=== PATIENT | female | born 1940 | race Caucasian/White ===

== ENCOUNTER 2017-03-09 08:43 | Inpatient (IN) | payer OTHER ==
[~2017-03-09] VITALS: Ht 170.1 cm; Wt 92.2 kg
[2017-03-09] VITALS (11 sets, daily range): BP systolic 132–210; BP diastolic 66–83
[~2017-03-09 08:43] MED LIST: ALDACTONE25 M1 PO; AMILORIDE5 MG PO; APRESOLINE10 MG PO; ASA; ASPIRIN325 MG; ASPIRIN81 M1; ATARAX25 MG PO; ATIVAN PO; ATIVAN0.5 MG PO; CIPROFLOXACIN500 MG PO; COUMADIN; COUMADIN1 M1 PO; COUMADIN3 MG PO; Coumadin2 MG PO; DAYPRO600 M1 PO; DEMADEX5 MG PO; DILTIAZEM 24HR120 MG PO; EPLERENONE25 MG; FLAGYL500 M1 PO; FOLIC ACID1 MG; LEVAQUIN 500 M500 M1 PO; NIFEDIPINE30 MG PO; NORFLEX100 MG PO; PEPCID40 MG PO; PROCARDIA10 MG PO; PROTONIX40 MG; VASOTEC2.5 MG PO; VITAMIN D350000 UNIT PO; VITAMIN D50000 I1; VITAMIN D50000 I2 PO; Vicodin 5/500 505 MG; ZETIA10 MG PO
[2017-03-09 09:03] LABS: BASO % 0.7 % (0.0-1.0); EOS # 0.1 10*3/uL (0.0-0.4); HEMATOCRIT 43.9 % (37.0-47.0); HEMOGLOBIN 14.3 g/dl (12.0-16.0); LYMPH # 1.6 10*3/uL (1.3-4.4); LYMPH % 27.7 % (27.0-41.0); MEAN CELL VOLUME 99.8 fl (81.0-99.0); MEAN CORPUSCULAR HGB 32.5 pg (27.0-31.0); MEAN CORPUSCULAR HGB CONC 32.6 g/dl (33.0-37.0); MEAN PLATELET VOLUME 11.2 fl (9.6-12.3); MONO # 0.5 10*3/uL (0.1-1.0); MONO % 8.4 % (3.0-9.0); NEUT # 3.4 10*3/uL (2.3-7.9); PLATELET COUNT AUTOMATED 169 10*3/uL (130-400); RED CELL DISTRI WIDTH 13.4 % (0-14.5); WHITE BLOOD COUNT 5.6 10*3/uL (4.8-10.8)
[2017-03-09 09:30] LABS: ALBUMIN 3.4 gm/dl (3.1-4.5); ALKALINE PHOSPHATASE 81 U/L (45-117); BUN 15 mg/dl (7-24); CHLORIDE 108 mmol/L (98-107); CREATININE 1.08 mg/dL (0.55-1.02); MAGNESIUM 2.4 mg/dL (1.5-2.1); SGOT/AST 26 IU/L (3-35); SGPT/ALT 37 U/L (12-78); SODIUM 141 mmol/L (136-145); TOTAL PROTEIN 7.4 gm/dL (6.4-8.2)
[2017-03-09 09:33] LABS: ACT PARTIAL THROMBO TIME 34.1 SECONDS (20.8-31.5); INTERNATIONAL NORM RATIO 2.3 (2.0-3.5); TROPONIN I < 0.015 ng/ml (<0.045)
--- NOTE | 2017-03-09 11:31 | NUR ---
A 76, admitted to , under the services of PHILL Mercado DO with a diagnosis of HYPERTENSIVE EMERGENCY. Chief complaint is NAUSEA AND CHEST PRESSURE. Patient arrived via bed from ER. Monitor applied. Initial assessment completed. Vital signs taken and recorded. PHILL MERCADO DO notified of admission to the unit. Orders received. See assessment for past medical history, medications and allergies. Patient and/or family oriented to unit. [facility]. Clothing/patient valuable form completed. UMESH BRENNAN
--- NOTE | 2017-03-09 13:33 | NUR ---
[facility] CALLED, PATIENT'S HOME MEDICATION RECONCILIATION UPDATED.
--- NOTE | 2017-03-09 13:52 | NUR ---
CALLED IN CONSULT FOR DR. PAZ TO [facility]. WAITING FOR PHYSICIAN TO RETURN PHONE CALL.
--- NOTE | 2017-03-09 16:36 | NUR ---
FLU AND PNEUMOVAC REFUSED. PT STATES SHES ALLERGIC.
--- NOTE | 2017-03-09 23:16 | NUR ---
Medicated with Tylenol po prn for headache. Will monitor effectiveness. Call light within reach.
[2017-03-10] VITALS: BP 169/72
--- NOTE | 2017-03-10 00:19 | NUR ---
Patient resting quietly in bed with eyes closed. Tylenol effective. Will continue to monitor. Call light within reach.
--- NOTE | 2017-03-10 00:40 | NUR ---
24 HR chart check completed.
[2017-03-10 07:11] LABS: BASO # 0.1 10*3/uL (0.0-0.1); EOS # 0.1 10*3/uL (0.0-0.4); EOS % 2.1 % (1.0-4.0); HEMOGLOBIN 13.7 g/dl (12.0-16.0); LYMPH # 1.4 10*3/uL (1.3-4.4); MEAN CELL VOLUME 99.8 fl (81.0-99.0); MEAN CORPUSCULAR HGB 32.5 pg (27.0-31.0); MEAN CORPUSCULAR HGB CONC 32.6 g/dl (33.0-37.0); MEAN PLATELET VOLUME 11.5 fl (9.6-12.3); MONO # 0.5 10*3/uL (0.1-1.0); MONO % 9.7 % (3.0-9.0); NEUT # 3.1 10*3/uL (2.3-7.9); NEUT % 59.8 % (47.0-73.0); PLATELET COUNT AUTOMATED 152 10*3/uL (130-400); RED BLOOD COUNT 4.21 10*6/uL (4.10-5.10); RED CELL DISTRI WIDTH 13.3 % (0-14.5); WHITE BLOOD COUNT 5.2 10*3/uL (4.8-10.8)
[2017-03-10 07:24] LABS: BUN 15 mg/dl (7-24); CHLORIDE 108 mmol/L (98-107); CHOLESTEROL 265 mg/dL (<200); CREATININE 1.03 mg/dL (0.55-1.02); POTASSIUM 3.8 mmol/L (3.5-5.1); SODIUM 142 mmol/L (136-145); TRIGLYCERIDES 152 mg/dl (<150); VLDL CHOLESTEROL 30 mg/dL (6-40)
[2017-03-10 07:34] LABS: HDL CHOLESTEROL 45 mg/dl (40-60); LDL CHOLESTEROL 190 mg/dL (9-159); MAGNESIUM 2.3 mg/dL (1.5-2.1); PHOSPHOROUS 3.2 mg/dL (2.5-4.9)
[2017-03-10 07:46] LABS: ACT PARTIAL THROMBO TIME 33.5 SECONDS (20.8-31.5)
[2017-03-10 08:00] VITALS: BP 167/78
--- NOTE | 2017-03-10 08:30 | NUR ---
Nursery School Attendant in to talk to patient. Patient states lives at HOME with HER . There are 0 HAS STAIR CHAIR LEFT steps in the home. Physician: DR ESTEVEZ Pharmacy: [facility] services: NONE Patient's level of ADLs: INDEPENDENT Patient has working utilities: DME: YES Follow-up physician's appointment after d/c: WILL BE MADE PRIOR TODC Does patient want to access PORTAL?: Discharge plan HOME. ALEX CHRISTINE
[2017-03-10 08:38] LABS: VITAMIN D, 25-HYDROXY 42.5 ng/mL (30-100)
--- NOTE | 2017-03-10 09:50 | NUR ---
PT REFUSED STRESS TEST, DR IBARRA AND [facility] NOTIFIED.
[2017-03-10 12:00] VITALS: BP 164/56
[2017-03-10] MEDS ORDERED: ATORVASTATIN CA20 M1 PO (13:26)
[2017-03-10] MEDS ORDERED: APRESOLINE10 MG PO (13:26)
--- NOTE | 2017-03-10 13:50 | NUR ---
PATIENT DISCHARGED TO HOME. IV AND AUTO CLUB SAFETY PROGRAM COORDINATOR DISCONTINUED. DISCHARGE INSTRUCTIONS GIVEN AND REVIEWED WITH PATIENT. PRESCRIPTIONS GIVEN TO PATIENT.
== END 2017-03-10 13:50 | disposition home or self-care (01) | DRG 304 ==
LOC: ED 08:43 → 4E 11:01 → EDHOLD 11:01 → 4E 11:12
PROVIDERS: Emergency Medicine; Internal Medicine Nephrology; ADMIT Internal Medicine
DX: I16.1 Hypertensive emergency (principal); N17.0 Acute kidney failure with tubular necrosis; D68.2 Hereditary deficiency of other clotting factors; I12.9 Hypertensive chronic kidney disease with stage 1 through stage 4 chronic kidney disease, or unspecified chronic kidney disease; N18.3 Chronic kidney disease, stage 3 (moderate); R07.89 Other chest pain; I48.91 Unspecified atrial fibrillation; E83.41 Hypermagnesemia; F41.1 Generalized anxiety disorder; E66.9 Obesity, unspecified; E78.5 Hyperlipidemia, unspecified; Z86.73 Personal history of transient ischemic attack (TIA), and cerebral infarction without residual deficits; Z86.711 Personal history of pulmonary embolism; Z88.2 Allergy status to sulfonamides; Z91.041 Radiographic dye allergy status; Z88.8 Allergy status to other drugs, medicaments and biological substances; Z79.899 Other long term (current) drug therapy; Z86.718 Personal history of other venous thrombosis and embolism; Z90.49 Acquired absence of other specified parts of digestive tract; Z90.710 Acquired absence of both cervix and uterus; Z80.1 Family history of malignant neoplasm of trachea, bronchus and lung; Z80.8 Family history of malignant neoplasm of other organs or systems; Z83.3 Family history of diabetes mellitus; Z82.49 Family history of ischemic heart disease and other diseases of the circulatory system; Z68.31 Body mass index [BMI] 31.0-31.9, adult

== ENCOUNTER 2017-04-17 11:44 | Inpatient (IN) | payer OTHER ==
[2017-04-17] VITALS (12 sets, daily range): BP systolic 86–190; BP diastolic 58–100
[~2017-04-17] VITALS: Ht 170.2 cm; Wt 93.5 kg
[~2017-04-17 11:44] MED LIST changes: +ATORVASTATIN CA20 M1 PO
[2017-04-17 12:22] LABS: BASO # 0.1 10*3/uL (0.0-0.1); BASO % 0.7 % (0.0-1.0); EOS # 0.1 10*3/uL (0.0-0.4); EOS % 1.3 % (1.0-4.0); HEMATOCRIT 43.5 % (37.0-47.0); HEMOGLOBIN 14.2 g/dl (12.0-16.0); LYMPH # 1.7 10*3/uL (1.3-4.4); LYMPH % 24.2 % (27.0-41.0); MEAN CELL VOLUME 99.8 fl (81.0-99.0); MEAN CORPUSCULAR HGB 32.6 pg (27.0-31.0); MEAN CORPUSCULAR HGB CONC 32.6 g/dl (33.0-37.0); MEAN PLATELET VOLUME 11.1 fl (9.6-12.3); MONO # 0.8 10*3/uL (0.1-1.0); MONO % 10.6 % (3.0-9.0); NEUT # 4.5 10*3/uL (2.3-7.9); NEUT % 62.9 % (47.0-73.0); PLATELET COUNT AUTOMATED 171 10*3/uL (130-400); RED BLOOD COUNT 4.36 10*6/uL (4.10-5.10); WHITE BLOOD COUNT 7.1 10*3/uL (4.8-10.8)
[2017-04-17 12:32] LABS: ACT PARTIAL THROMBO TIME 33.1 SECONDS (20.8-31.5); INTERNATIONAL NORM RATIO 2.3 (2.0-3.5)
[2017-04-17 12:38] LABS: ALBUMIN 3.4 gm/dl (3.1-4.5); ALKALINE PHOSPHATASE 85 U/L (45-117); BUN 21 mg/dl (7-24); CHLORIDE 108 mmol/L (98-107); CREATININE 1.33 mg/dL (0.55-1.02); POTASSIUM 4.3 mmol/L (3.5-5.1); SGOT/AST 26 IU/L (3-35); SGPT/ALT 48 U/L (12-78); SODIUM 142 mmol/L (136-145); TOTAL PROTEIN 7.5 gm/dL (6.4-8.2)
[2017-04-17 12:41] LABS: TROPONIN I < 0.015 ng/ml (<0.045)
--- NOTE | 2017-04-17 13:05 | NUR ---
1253 CALLED TO PATIENTS ROOM STATES SHE FEELS LIKE HER HEART IS BEATING OUT OF HER CHEST AND SHE IS NAUSEATED. CHEEKS ARE FLUSHED MADE AWARE. GRACIE CEDEÑO RN.
--- NOTE | 2017-04-17 14:05 | NUR ---
PT STATES SHE IS FEELING MUCH BETTER, MONITOR SHOWING SINUS RHYTHM AT 86 WITH A PULSE OX OF 96% ROOM AIR. GRACIE CEDEÑO RN.
--- NOTE | 2017-04-17 16:00 | NUR ---
Time: 1600 A 76 year old F admitted to under services of PHILL MERCADO DO, Pt. arrived via stretcher from ER. Chief complaint: SUDDEN ONSET OF DIZZINESS & NAUSEA. INCREASED BP. ROXANA FRAUSTO
[2017-04-17 16:07] LABS: BILIRUBIN NEGATIVE (NEGATIVE); BLOOD NEGATIVE (NEGATIVE); CLARITY SL CLOUDY (CLEAR); COLOR YELLOW (YELLOW); GLUCOSE NEGATIVE (NEGATIVE); KETONE NEGATIVE (NEGATIVE); LEUKO ESTERASE 2+ (NEGATIVE); NITRITE NEGATIVE (NEGATIVE)
[2017-04-17 16:18] LABS: BACTERIA 2+; RBC 0-2 rbc/hpf (0-2); WBC 16-20 wbc/hpf (0-5)
--- NOTE | 2017-04-17 18:19 | NUR ---
RESTING COMFORTABLY, CONTINUES TO DENY C/O.
--- NOTE | 2017-04-17 18:45 | NUR ---
MEDICATED PO ORDERED PER PT REQUEST WITH NORCO FOR C/O POSTERIOR VILLARREAL. SEE EMAR.
--- NOTE | 2017-04-17 18:56 | NUR ---
SPOKE WITH GRUPO AT DR ANDERSON'S ANSWERING SERVICE REGARDING CONSULT.
--- NOTE | 2017-04-17 19:08 | NUR ---
DR ANDERSON NOTIFIED OF CONSULT, NEW ORDERS RECEIVED.
[2017-04-18] VITALS: BP 115/48
[2017-04-18 04:00] VITALS: BP 146/78
[2017-04-18 06:48] LABS: BASO # 0.1 10*3/uL (0.0-0.1); BASO % 0.8 % (0.0-1.0); EOS # 0.1 10*3/uL (0.0-0.4); EOS % 1.4 % (1.0-4.0); HEMATOCRIT 41.2 % (37.0-47.0); HEMOGLOBIN 13.4 g/dl (12.0-16.0); LYMPH # 1.9 10*3/uL (1.3-4.4); LYMPH % 29.2 % (27.0-41.0); MEAN CORPUSCULAR HGB 32.5 pg (27.0-31.0); MEAN CORPUSCULAR HGB CONC 32.5 g/dl (33.0-37.0); MEAN PLATELET VOLUME 11.7 fl (9.6-12.3); MONO # 0.7 10*3/uL (0.1-1.0); MONO % 10.4 % (3.0-9.0); NEUT # 3.7 10*3/uL (2.3-7.9); NEUT % 57.7 % (47.0-73.0); PLATELET COUNT AUTOMATED 156 10*3/uL (130-400); RED BLOOD COUNT 4.12 10*6/uL (4.10-5.10); RED CELL DISTRI WIDTH 13.3 % (0-14.5); WHITE BLOOD COUNT 6.3 10*3/uL (4.8-10.8)
[2017-04-18 07:23] LABS: INTERNATIONAL NORM RATIO 2.1 (2.0-3.5)
[2017-04-18 07:28] LABS: BUN 20 mg/dl (7-24); CHLORIDE 108 mmol/L (98-107); POTASSIUM 4.2 mmol/L (3.5-5.1); SODIUM 141 mmol/L (136-145)
[2017-04-18 07:37] LABS: ALBUMIN 3.1 gm/dl (3.1-4.5); ALKALINE PHOSPHATASE 71 U/L (45-117); CREATININE 1.05 mg/dL (0.55-1.02); SGOT/AST 23 IU/L (3-35); SGPT/ALT 39 U/L (12-78); TOTAL PROTEIN 6.5 gm/dL (6.4-8.2)
[2017-04-18 08:00] VITALS: BP 152/70
--- NOTE | 2017-04-18 09:00 | NUR ---
Certified Performance Technologist in to talk to patient. Patient states lives at home with . There are few steps in the home. Physician: lionel kevin Pharmacy: [facility] services: none Patient's level of ADLs: INDEPENDENT Patient has working utilities: all working DME: stair lift Follow-up physician's appointment after d/c: will be made by hospitalist nurse director upon discharge Does patient want to access PORTAL?: no Discharge plan discussed with patient, patient lives at home with , states she is independent in adls and ambulation, patient states she has a daughter who visits and can help her with whatever needed, daily, patient states she will be going back home and denies any home needs. ALEX FOSTER
--- NOTE | 2017-04-18 10:30 | NUR ---
THIS NURSE CALLED DR ANDERSON TO QUESTION PT NPO STATUS FOR RENAL ULTRASOUND. AT THIS TIME WE REALIZED THE RENAL DOPPLER STILL NEEDED TO BE ORDERED AND THIS IS WHY PT NEEDED TO BE NPO. THIS NURSE ORDERED DOPPLER PER DR ANDERSON.
--- NOTE | 2017-04-18 11:30 | NUR ---
PT OFF FLOOR TO ULTRASOUND.
[2017-04-18 12:00] VITALS: BP 180/72
--- NOTE | 2017-04-18 15:51 | NUR ---
DR CARLOS CALLED TO INQUIRE ABOUT WHY PATIENT'S COUMADIN IS ON HOLD. DR CARLOS WOULD LIKE TO KEEP IT ON HOLD FOR NOW. HE WILL LOOK IN TO IT.
[2017-04-18 16:00] VITALS: BP 150/68
[2017-04-18 20:00] VITALS: BP 163/76
--- NOTE | 2017-04-18 20:30 | NUR ---
PT ASSESSED AT THIS TIME. ALERT ORIENTED AND COOPERATIVE. NO S/S OF DISTRESS. NO C/O PAIN VOICED. LUNGS CTA, HEART RATE IN SINUS RHYTHM PER CM. BS NORMOACTIVE. RESPIRATIONS EASY AND UNLABORED. WILL CONTINUE TO MONITOR THROUGHOUT SHIFT.
[2017-04-19] VITALS: BP 163/82
--- NOTE | 2017-04-19 04:00 | NUR ---
PT NOT AWAKENED PER POLICY. NO S/S OF DISTRESS. RESPIRATIONS 16, EASY AND UNLABORED. HEART RATE 57 PER CM.
[2017-04-19 08:00] VITALS: BP 153/68
--- NOTE | 2017-04-19 08:33 | NUR ---
PT IN BED, VISITING WITH FAMILY. INQUIRING ABOUT HER DISCHARGE STATUS. LUNGS CLEAR AND DIMINISHED. NO EDEMA NOTED. NO WOUNDS PER PT. BOWELS NORMOACTIVE X4. PT DENIES PAIN OF ANY KIND, NAUSEA, VOMITING, DIARRHEA, CONSTIPATION. NO COMPLAINTS AT THIS TIME. WILL CONTINUE TO MONITOR.
--- NOTE | 2017-04-19 09:00 | NUR ---
case management visits with patient, patient denies any home needs
--- NOTE | 2017-04-19 09:48 | NUR ---
PATIENT WAS PLEASANT AND COOPERATIVE WITH CARE MEGHANN DEVLIN
[2017-04-19 12:00] VITALS: BP 149/80
--- NOTE | 2017-04-19 12:33 | NUR ---
PATIENT IS UP SITTING QUIETLY IN HER ROOM, AT THIS TIME PATIENT HAS NOT ORDERED OR EATEN ANYTHING FOR LUNCH MEGHANN COREASCC
[2017-04-19] MEDS ORDERED: AMILORIDE5 MG PO (13:58)
[2017-04-19] MEDS ORDERED: APRESOLINE25 MG PO (13:58)
--- NOTE | 2017-04-19 16:36 | NUR ---
Discharge instructions reviewed with patient/family. Patient receptive and verbalizes understanding. Follow-up care arranged. Written instructions given to patient/family. GRACIE FERNANDEZ
== END 2017-04-19 16:36 | disposition home or self-care (01) | DRG 304 ==
LOC: ED 11:44 → EDHOLD 15:22 → 4E 15:22
PROVIDERS: Family Medicine; Internal Medicine; Student in an Organized Health Care Education/Training Program; ADMIT Internal Medicine
DX: I16.1 Hypertensive emergency (principal); G93.41 Metabolic encephalopathy; D68.2 Hereditary deficiency of other clotting factors; N18.3 Chronic kidney disease, stage 3 (moderate); E87.8 Other disorders of electrolyte and fluid balance, not elsewhere classified; D72.810 Lymphocytopenia; R23.2 Flushing; E78.5 Hyperlipidemia, unspecified; F41.1 Generalized anxiety disorder; R55 Syncope and collapse; E66.9 Obesity, unspecified; I12.9 Hypertensive chronic kidney disease with stage 1 through stage 4 chronic kidney disease, or unspecified chronic kidney disease; Z90.49 Acquired absence of other specified parts of digestive tract; Z79.01 Long term (current) use of anticoagulants; Z79.899 Other long term (current) drug therapy; Z88.2 Allergy status to sulfonamides; Z88.8 Allergy status to other drugs, medicaments and biological substances; Z90.710 Acquired absence of both cervix and uterus; Z83.3 Family history of diabetes mellitus; Z82.49 Family history of ischemic heart disease and other diseases of the circulatory system; Z80.1 Family history of malignant neoplasm of trachea, bronchus and lung; Z82.69 Family history of other diseases of the musculoskeletal system and connective tissue; Z68.31 Body mass index [BMI] 31.0-31.9, adult

== ENCOUNTER 2017-09-19 06:44 | Inpatient (IN) | payer OTHER ==
[~2017-09-19] VITALS: Ht 170.1 cm; Wt 91.4 kg
[2017-09-19] VITALS (7 sets, daily range): BP systolic 151–212; BP diastolic 69–102
[~2017-09-19 06:44] MED LIST changes: +APRESOLINE25 MG PO
[2017-09-19 07:25] LABS: BASO # 0.1 10*3/uL (0.0-0.1); BASO % 0.9 % (0.0-1.0); EOS # 0.1 10*3/uL (0.0-0.4); EOS % 1.7 % (1.0-4.0); HEMATOCRIT 44.5 % (37.0-47.0); HEMOGLOBIN 14.8 g/dl (12.0-16.0); LYMPH # 1.6 10*3/uL (1.3-4.4); LYMPH % 28.4 % (27.0-41.0); MEAN CELL VOLUME 97.2 fl (81.0-99.0); MEAN CORPUSCULAR HGB 32.3 pg (27.0-31.0); MEAN CORPUSCULAR HGB CONC 33.3 g/dl (33.0-37.0); MEAN PLATELET VOLUME 11.7 fl (9.6-12.3); MONO # 0.5 10*3/uL (0.1-1.0); MONO % 9.2 % (3.0-9.0); NEUT # 3.5 10*3/uL (2.3-7.9); NEUT % 59.6 % (47.0-73.0); PLATELET COUNT AUTOMATED 156 10*3/uL (130-400); RED BLOOD COUNT 4.58 10*6/uL (4.10-5.10); RED CELL DISTRI WIDTH 13.2 % (0-14.5); WHITE BLOOD COUNT 5.8 10*3/uL (4.8-10.8)
[2017-09-19 07:34] LABS: ACT PARTIAL THROMBO TIME 33.6 SECONDS (20.8-31.5); INTERNATIONAL NORM RATIO 2.4 (2.0-3.5)
[2017-09-19 07:40] LABS: ALBUMIN 3.4 gm/dl (3.1-4.5); ALKALINE PHOSPHATASE 68 U/L (45-117); BUN 19 mg/dl (7-24); CHLORIDE 108 mmol/L (98-107); CREATININE 1.19 mg/dL (0.55-1.02); LIPASE 140 U/L (73-393); POTASSIUM 3.9 mmol/L (3.5-5.1); SGOT/AST 34 IU/L (3-35); SGPT/ALT 58 U/L (12-78); SODIUM 141 mmol/L (136-145); TOTAL PROTEIN 7.1 gm/dL (6.4-8.2)
[2017-09-19 07:43] LABS: TROPONIN I < 0.015 ng/ml (<0.045)
[2017-09-20] VITALS: BP 127/51
[2017-09-20 06:50] LABS: BASO % 0.6 % (0.0-1.0); EOS # 0.1 10*3/uL (0.0-0.4); EOS % 1.7 % (1.0-4.0); HEMATOCRIT 44.5 % (37.0-47.0); HEMOGLOBIN 14.7 g/dl (12.0-16.0); LYMPH # 1.6 10*3/uL (1.3-4.4); LYMPH % 25.2 % (27.0-41.0); MEAN CELL VOLUME 98.9 fl (81.0-99.0); MEAN CORPUSCULAR HGB 32.7 pg (27.0-31.0); MEAN PLATELET VOLUME 11.7 fl (9.6-12.3); MONO # 0.7 10*3/uL (0.1-1.0); MONO % 10.7 % (3.0-9.0); NEUT # 3.9 10*3/uL (2.3-7.9); NEUT % 61.5 % (47.0-73.0); PLATELET COUNT AUTOMATED 162 10*3/uL (130-400); RED CELL DISTRI WIDTH 13.4 % (0-14.5); WHITE BLOOD COUNT 6.3 10*3/uL (4.8-10.8)
[2017-09-20 07:09] LABS: INTERNATIONAL NORM RATIO 2.5 (2.0-3.5)
[2017-09-20 07:12] LABS: CREATININE 1.19 mg/dL (0.55-1.02); PHOSPHOROUS 3.4 mg/dL (2.5-4.9); POTASSIUM 3.9 mmol/L (3.5-5.1)
[2017-09-20 07:21] LABS: THYROID STIM HORMONE (HS) 1.51 uIU/ml (0.358-4.75)
[2017-09-20 08:00] VITALS: BP 139/58
[2017-09-20 12:00] VITALS: BP 159/59
[2017-09-20] MEDS ORDERED: AMILORIDE5 MG PO ×3 (13:17→13:21)
== END 2017-09-20 14:47 | disposition home or self-care (01) | DRG 305 ==
LOC: ED 06:44 → EDHOLD 08:51 → 5E 08:51
PROVIDERS: Emergency Medicine; Internal Medicine; Student in an Organized Health Care Education/Training Program
DX: I16.1 Hypertensive emergency (principal); D68.9 Coagulation defect, unspecified; E87.8 Other disorders of electrolyte and fluid balance, not elsewhere classified; D68.2 Hereditary deficiency of other clotting factors; I65.23 Occlusion and stenosis of bilateral carotid arteries; E83.41 Hypermagnesemia; N18.3 Chronic kidney disease, stage 3 (moderate); I82.501 Chronic embolism and thrombosis of unspecified deep veins of right lower extremity; R55 Syncope and collapse; N28.89 Other specified disorders of kidney and ureter; I25.10 Atherosclerotic heart disease of native coronary artery without angina pectoris; I12.9 Hypertensive chronic kidney disease with stage 1 through stage 4 chronic kidney disease, or unspecified chronic kidney disease; E66.9 Obesity, unspecified; F41.1 Generalized anxiety disorder; E78.5 Hyperlipidemia, unspecified; R79.82 Elevated C-reactive protein (CRP); E04.1 Nontoxic single thyroid nodule; Z79.899 Other long term (current) drug therapy; Z88.2 Allergy status to sulfonamides; Z88.8 Allergy status to other drugs, medicaments and biological substances; Z88.1 Allergy status to other antibiotic agents; Z51.81 Encounter for therapeutic drug level monitoring; Z79.01 Long term (current) use of anticoagulants; Z91.041 Radiographic dye allergy status; Z86.711 Personal history of pulmonary embolism; Z90.49 Acquired absence of other specified parts of digestive tract; Z90.710 Acquired absence of both cervix and uterus; Z83.3 Family history of diabetes mellitus; Z82.49 Family history of ischemic heart disease and other diseases of the circulatory system; Z80.9 Family history of malignant neoplasm, unspecified; Z80.1 Family history of malignant neoplasm of trachea, bronchus and lung; Z68.32 Body mass index [BMI] 32.0-32.9, adult

== ENCOUNTER 2017-09-21 05:19 | Inpatient (IN) | payer OTHER ==
[~2017-09-21] VITALS: Ht 170.1 cm; Wt 90.3 kg
[2017-09-21] VITALS (9 sets, daily range): BP systolic 120–184; BP diastolic 54–97
[2017-09-21 05:45] LABS: BASO % 0.7 % (0.0-1.0); EOS # 0.1 10*3/uL (0.0-0.4); EOS % 1.6 % (1.0-4.0); HEMATOCRIT 44.5 % (37.0-47.0); HEMOGLOBIN 14.6 g/dl (12.0-16.0); LYMPH # 1.5 10*3/uL (1.3-4.4); LYMPH % 24.7 % (27.0-41.0); MEAN CELL VOLUME 98.9 fl (81.0-99.0); MEAN CORPUSCULAR HGB 32.4 pg (27.0-31.0); MEAN CORPUSCULAR HGB CONC 32.8 g/dl (33.0-37.0); MEAN PLATELET VOLUME 11.3 fl (9.6-12.3); MONO # 0.6 10*3/uL (0.1-1.0); MONO % 9.8 % (3.0-9.0); NEUT # 3.9 10*3/uL (2.3-7.9); PLATELET COUNT AUTOMATED 153 10*3/uL (130-400); RED CELL DISTRI WIDTH 13.2 % (0-14.5); WHITE BLOOD COUNT 6.2 10*3/uL (4.8-10.8)
[2017-09-21 06:01] LABS: ALBUMIN 3.4 gm/dl (3.1-4.5); ALKALINE PHOSPHATASE 67 U/L (45-117); BUN 20 mg/dl (7-24); CHLORIDE 106 mmol/L (98-107); CREATININE 1.18 mg/dL (0.55-1.02); POTASSIUM 3.9 mmol/L (3.5-5.1); SGOT/AST 28 IU/L (3-35); SGPT/ALT 49 U/L (12-78); SODIUM 140 mmol/L (136-145)
[2017-09-21 06:04] LABS: ACT PARTIAL THROMBO TIME 34.2 SECONDS (20.8-31.5); INTERNATIONAL NORM RATIO 2.6 (2.0-3.5)
[2017-09-21 06:32] LABS: TROPONIN I < 0.015 ng/ml (<0.045)
[2017-09-22] VITALS (8 sets, daily range): BP systolic 134–200; BP diastolic 57–82
[2017-09-22 07:41] LABS: INTERNATIONAL NORM RATIO 2.6 (2.0-3.5)
[2017-09-22 07:45] LABS: BASO # 0.1 10*3/uL (0.0-0.1); BASO % 0.9 % (0.0-1.0); EOS # 0.1 10*3/uL (0.0-0.4); EOS % 1.6 % (1.0-4.0); HEMATOCRIT 45.8 % (37.0-47.0); HEMOGLOBIN 15.2 g/dl (12.0-16.0); LYMPH # 1.5 10*3/uL (1.3-4.4); LYMPH % 26.8 % (27.0-41.0); MEAN CELL VOLUME 98.1 fl (81.0-99.0); MEAN CORPUSCULAR HGB 32.5 pg (27.0-31.0); MEAN CORPUSCULAR HGB CONC 33.2 g/dl (33.0-37.0); MEAN PLATELET VOLUME 11.8 fl (9.6-12.3); MONO # 0.5 10*3/uL (0.1-1.0); MONO % 8.9 % (3.0-9.0); NEUT # 3.5 10*3/uL (2.3-7.9); NEUT % 61.6 % (47.0-73.0); PLATELET COUNT AUTOMATED 171 10*3/uL (130-400); RED BLOOD COUNT 4.67 10*6/uL (4.10-5.10); RED CELL DISTRI WIDTH 13.3 % (0-14.5); WHITE BLOOD COUNT 5.6 10*3/uL (4.8-10.8)
[2017-09-22 07:47] LABS: PHOSPHOROUS 2.8 mg/dL (2.5-4.9); POTASSIUM 4.1 mmol/L (3.5-5.1)
[2017-09-22 08:23] LABS: CREATININE 1.09 mg/dL (0.55-1.02)
[2017-09-23] VITALS: BP 132/65
[2017-09-23 05:37] VITALS: BP 160/82
[2017-09-23 08:00] VITALS: BP 139/67
[2017-09-23 08:26] LABS: CREATININE 1.28 mg/dL (0.55-1.02); POTASSIUM 4.2 mmol/L (3.5-5.1)
[2017-09-23 12:00] VITALS: BP 158/70
[2017-09-23] MEDS ORDERED: HYDRALAZINE HYD50 MG PO (13:53)
== END 2017-09-23 14:23 | disposition home or self-care (01) | DRG 305 ==
LOC: ED 05:19 → EDHOLD 06:40 → 4E 06:46
PROVIDERS: Internal Medicine Nephrology; Student in an Organized Health Care Education/Training Program
PROC: 4A02XM4 Measurement of Cardiac Total Activity, External Approach (ICD-10-PCS; principal; 2017-09-22)
PROC: 3E073KZ Introduction of Other Diagnostic Substance into Coronary Artery, Percutaneous Approach (ICD-10-PCS; principal; 2017-09-22)
DX: I16.1 Hypertensive emergency (principal); J90 Pleural effusion, not elsewhere classified; D68.9 Coagulation defect, unspecified; D68.2 Hereditary deficiency of other clotting factors; I65.23 Occlusion and stenosis of bilateral carotid arteries; E44.1 Mild protein-calorie malnutrition; N18.3 Chronic kidney disease, stage 3 (moderate); I34.0 Nonrheumatic mitral (valve) insufficiency; E83.41 Hypermagnesemia; E66.9 Obesity, unspecified; F41.1 Generalized anxiety disorder; I25.118 Atherosclerotic heart disease of native coronary artery with other forms of angina pectoris; D72.810 Lymphocytopenia; R73.9 Hyperglycemia, unspecified; I16.0 Hypertensive urgency; I12.9 Hypertensive chronic kidney disease with stage 1 through stage 4 chronic kidney disease, or unspecified chronic kidney disease; E78.5 Hyperlipidemia, unspecified; Z86.711 Personal history of pulmonary embolism; Z68.31 Body mass index [BMI] 31.0-31.9, adult; Z98.61 Coronary angioplasty status; Z86.718 Personal history of other venous thrombosis and embolism; Z86.73 Personal history of transient ischemic attack (TIA), and cerebral infarction without residual deficits; Z51.81 Encounter for therapeutic drug level monitoring; Z79.01 Long term (current) use of anticoagulants; Z90.710 Acquired absence of both cervix and uterus; Z90.49 Acquired absence of other specified parts of digestive tract; Z80.1 Family history of malignant neoplasm of trachea, bronchus and lung; Z80.8 Family history of malignant neoplasm of other organs or systems; Z84.89 Family history of other specified conditions; Z88.2 Allergy status to sulfonamides; Z88.8 Allergy status to other drugs, medicaments and biological substances; Z79.899 Other long term (current) drug therapy

== ENCOUNTER 2017-10-27 05:04 | Inpatient (IN) | payer OTHER ==
[~2017-10-27] VITALS: Ht 170.1 cm; Wt 88.2 kg
[2017-10-27] VITALS (7 sets, daily range): BP systolic 159–192; BP diastolic 59–96
[~2017-10-27 05:04] MED LIST changes: +HYDRALAZINE HYD50 MG PO
[2017-10-27] MEDS ORDERED: VITAMIN D50000 UNIT PO (05:14)
[2017-10-27 05:26] LABS: BASO # 0.1 10*3/uL (0.0-0.1); EOS # 0.2 10*3/uL (0.0-0.4); EOS % 3.1 % (1.0-4.0); HEMATOCRIT 41.3 % (37.0-47.0); HEMOGLOBIN 13.5 g/dl (12.0-16.0); LYMPH # 1.8 10*3/uL (1.3-4.4); MEAN CELL VOLUME 100.2 fl (81.0-99.0); MEAN CORPUSCULAR HGB 32.8 pg (27.0-31.0); MEAN CORPUSCULAR HGB CONC 32.7 g/dl (33.0-37.0); MEAN PLATELET VOLUME 11.6 fl (9.6-12.3); MONO # 0.6 10*3/uL (0.1-1.0); MONO % 10.2 % (3.0-9.0); NEUT # 3.4 10*3/uL (2.3-7.9); NEUT % 55.4 % (47.0-73.0); PLATELET COUNT AUTOMATED 161 10*3/uL (130-400); RED BLOOD COUNT 4.12 10*6/uL (4.10-5.10); RED CELL DISTRI WIDTH 13.4 % (0-14.5); WHITE BLOOD COUNT 6.1 10*3/uL (4.8-10.8)
[2017-10-27 05:38] LABS: ACT PARTIAL THROMBO TIME 32.2 SECONDS (20.8-31.5)
[2017-10-27 05:50] LABS: ALBUMIN 3.4 gm/dl (3.1-4.5); ALKALINE PHOSPHATASE 67 U/L (45-117); BUN 15 mg/dl (7-24); CHLORIDE 109 mmol/L (98-107); CREATININE 1.13 mg/dL (0.55-1.02); POTASSIUM 3.7 mmol/L (3.5-5.1); SGOT/AST 31 IU/L (3-35); SGPT/ALT 41 U/L (12-78); SODIUM 143 mmol/L (136-145)
[2017-10-27 05:52] LABS: TROPONIN I < 0.015 ng/ml (<0.045)
[2017-10-27] MEDS ORDERED: VITAMIN C500 M4 PO (08:20)
[2017-10-27] MEDS ORDERED: VITAMIN B121000 MC1 PO (08:21)
[2017-10-27] MEDS ORDERED: FOLIC ACID PO (08:22)
[2017-10-27] MEDS ORDERED: PROBIOTIC PO (08:23)
== END 2017-10-27 16:01 | disposition home or self-care (01) | DRG 392 ==
LOC: ED 05:04 → 5E 06:36 → EDHOLD 06:36 → 5E 06:51
PROVIDERS: Emergency Medicine
DX: K21.9 Gastro-esophageal reflux disease without esophagitis (principal); D68.9 Coagulation defect, unspecified; D68.2 Hereditary deficiency of other clotting factors; N18.3 Chronic kidney disease, stage 3 (moderate); E44.1 Mild protein-calorie malnutrition; E83.41 Hypermagnesemia; I65.23 Occlusion and stenosis of bilateral carotid arteries; R07.9 Chest pain, unspecified; I25.10 Atherosclerotic heart disease of native coronary artery without angina pectoris; F41.1 Generalized anxiety disorder; I12.9 Hypertensive chronic kidney disease with stage 1 through stage 4 chronic kidney disease, or unspecified chronic kidney disease; R00.1 Bradycardia, unspecified; E78.5 Hyperlipidemia, unspecified; I16.0 Hypertensive urgency; E66.9 Obesity, unspecified; Z95.828 Presence of other vascular implants and grafts; Z88.2 Allergy status to sulfonamides; Z88.8 Allergy status to other drugs, medicaments and biological substances; Z88.1 Allergy status to other antibiotic agents; Z91.041 Radiographic dye allergy status; Z86.718 Personal history of other venous thrombosis and embolism; Z79.01 Long term (current) use of anticoagulants; Z86.711 Personal history of pulmonary embolism; Z86.73 Personal history of transient ischemic attack (TIA), and cerebral infarction without residual deficits; Z90.710 Acquired absence of both cervix and uterus; Z90.49 Acquired absence of other specified parts of digestive tract; Z82.49 Family history of ischemic heart disease and other diseases of the circulatory system; Z83.3 Family history of diabetes mellitus; Z80.1 Family history of malignant neoplasm of trachea, bronchus and lung; Z68.31 Body mass index [BMI] 31.0-31.9, adult

== ENCOUNTER 2017-11-22 11:25 | Emergency (ER) | payer OTHER ==
[~2017-11-22] VITALS: Ht 170.1 cm; Wt 91.6 kg
[~2017-11-22 11:25] MED LIST changes: +PROBIOTIC1 EAC4 PO; +VITAMIN B121000 MC1 PO; +VITAMIN C500 M4 PO; +VITAMIN D50000 UNIT PO; +[UNRECOGNIZED DRUG - OTHER] PO
[2017-11-22 12:38] LABS: BASO # 0.1 10*3/uL (0.0-0.1); BASO % 0.7 % (0.0-1.0); EOS # 0.1 10*3/uL (0.0-0.4); HEMATOCRIT 44.1 % (37.0-47.0); HEMOGLOBIN 14.3 g/dl (12.0-16.0); LYMPH # 1.8 10*3/uL (1.3-4.4); LYMPH % 26.2 % (27.0-41.0); MEAN CELL VOLUME 100.9 fl (81.0-99.0); MEAN CORPUSCULAR HGB 32.7 pg (27.0-31.0); MEAN CORPUSCULAR HGB CONC 32.4 g/dl (33.0-37.0); MEAN PLATELET VOLUME 11.3 fl (9.6-12.3); MONO # 0.6 10*3/uL (0.1-1.0); MONO % 9.3 % (3.0-9.0); NEUT # 4.3 10*3/uL (2.3-7.9); NEUT % 62.5 % (47.0-73.0); PLATELET COUNT AUTOMATED 185 10*3/uL (130-400); RED BLOOD COUNT 4.37 10*6/uL (4.10-5.10); RED CELL DISTRI WIDTH 13.8 % (0-14.5); WHITE BLOOD COUNT 6.8 10*3/uL (4.8-10.8)
[2017-11-22 12:53] LABS: ALBUMIN 3.7 gm/dl (3.1-4.5); ALKALINE PHOSPHATASE 75 U/L (45-117); BUN 17 mg/dl (7-24); CHLORIDE 108 mmol/L (98-107); CREATININE 1.17 mg/dL (0.55-1.02); POTASSIUM 4.2 mmol/L (3.5-5.1); SGOT/AST 25 IU/L (3-35); SGPT/ALT 45 U/L (12-78); SODIUM 143 mmol/L (136-145); TOTAL PROTEIN 7.6 gm/dL (6.4-8.2)
[2017-11-22 12:53] LABS: ACT PARTIAL THROMBO TIME 32.3 SECONDS (20.8-31.5); INTERNATIONAL NORM RATIO 2.2 (2.0-3.5)
[2017-11-22 12:55] LABS: TROPONIN I < 0.015 ng/ml (<0.045)
[2017-11-22 16:38] VITALS: BP 188/92
[2017-11-22 16:57] LABS: BILIRUBIN NEGATIVE (NEGATIVE); BLOOD NEGATIVE (NEGATIVE); CLARITY CLEAR (CLEAR); COLOR YELLOW (YELLOW); GLUCOSE NEGATIVE (NEGATIVE); KETONE TRACE (NEGATIVE); LEUKO ESTERASE 1+ (NEGATIVE); NITRITE NEGATIVE (NEGATIVE); SPECIFIC GRAVITY 1.015 (1.005-1.030)
[2017-11-22 17:22] LABS: BACTERIA TRACE; EPITHELIAL CELLS 25-30; RBC 0-2 rbc/hpf (0-2)
== END 2017-11-22 17:55 | disposition short-term general hospital (02) ==
LOC: ED 11:25
PROVIDERS: Emergency Medicine
DX: G45.9 Transient cerebral ischemic attack, unspecified (principal); R42 Dizziness and giddiness; I25.10 Atherosclerotic heart disease of native coronary artery without angina pectoris; I12.9 Hypertensive chronic kidney disease with stage 1 through stage 4 chronic kidney disease, or unspecified chronic kidney disease; N18.3 Chronic kidney disease, stage 3 (moderate); E78.5 Hyperlipidemia, unspecified; E83.41 Hypermagnesemia; F41.9 Anxiety disorder, unspecified; Z88.8 Allergy status to other drugs, medicaments and biological substances; Z88.5 Allergy status to narcotic agent; Z91.041 Radiographic dye allergy status; Z88.2 Allergy status to sulfonamides; Z79.899 Other long term (current) drug therapy; Z86.718 Personal history of other venous thrombosis and embolism; Z86.711 Personal history of pulmonary embolism; Z90.49 Acquired absence of other specified parts of digestive tract; Z90.710 Acquired absence of both cervix and uterus

== ENCOUNTER 2017-12-05 17:15 | Emergency (ER) | payer OTHER ==
[~2017-12-05] VITALS: Ht 170.1 cm; Wt 90.3 kg
[2017-12-05 17:19] VITALS: BP 149/75
[2017-12-05 17:33] LABS: BILIRUBIN NEGATIVE (NEGATIVE); BLOOD NEGATIVE (NEGATIVE); CLARITY SL CLOUDY (CLEAR); COLOR YELLOW (YELLOW); GLUCOSE NEGATIVE (NEGATIVE); KETONE NEGATIVE (NEGATIVE); LEUKO ESTERASE 1+ (NEGATIVE); NITRITE NEGATIVE (NEGATIVE); PH 5.5 (5.0-9.0); SPECIFIC GRAVITY 1.025 (1.005-1.030)
[2017-12-05 17:40] LABS: BACTERIA TRACE; MUCOUS TRACE; WBC 16-20 wbc/hpf (0-5)
[2017-12-05 17:42] LABS: BASO # 0.1 10*3/uL (0.0-0.1); BASO % 0.6 % (0.0-1.0); EOS # 0.1 10*3/uL (0.0-0.4); EOS % 1.1 % (1.0-4.0); HEMATOCRIT 43.5 % (37.0-47.0); HEMOGLOBIN 14.1 g/dl (12.0-16.0); LYMPH # 2.4 10*3/uL (1.3-4.4); LYMPH % 27.8 % (27.0-41.0); MEAN CELL VOLUME 101.2 fl (81.0-99.0); MEAN CORPUSCULAR HGB 32.8 pg (27.0-31.0); MEAN CORPUSCULAR HGB CONC 32.4 g/dl (33.0-37.0); MEAN PLATELET VOLUME 11.1 fl (9.6-12.3); MONO # 0.7 10*3/uL (0.1-1.0); MONO % 8.5 % (3.0-9.0); NEUT # 5.3 10*3/uL (2.3-7.9); NEUT % 61.6 % (47.0-73.0); PLATELET COUNT AUTOMATED 215 10*3/uL (130-400); RED CELL DISTRI WIDTH 13.4 % (0-14.5); WHITE BLOOD COUNT 8.6 10*3/uL (4.8-10.8)
[2017-12-05 17:51] LABS: ACT PARTIAL THROMBO TIME 27.5 SECONDS (20.8-31.5); INTERNATIONAL NORM RATIO 1.6 (2.0-3.5)
[2017-12-05 18:01] LABS: ALBUMIN 3.5 gm/dl (3.1-4.5); CREATININE 1.19 mg/dL (0.55-1.02); POTASSIUM 4.4 mmol/L (3.5-5.1); TOTAL PROTEIN 7.5 gm/dL (6.4-8.2)
[2017-12-05] MEDS ORDERED: PYRIDIUM200 M1 PO (18:24)
[2017-12-05] MEDS ORDERED: CIPRO500 MG PO (18:24)
== END 2017-12-05 18:30 | disposition home or self-care (01) ==
LOC: ED 17:15
PROVIDERS: Nurse Practitioner Family
DX: N39.0 Urinary tract infection, site not specified (principal); I25.10 Atherosclerotic heart disease of native coronary artery without angina pectoris; I12.9 Hypertensive chronic kidney disease with stage 1 through stage 4 chronic kidney disease, or unspecified chronic kidney disease; N18.3 Chronic kidney disease, stage 3 (moderate); E78.5 Hyperlipidemia, unspecified; E66.9 Obesity, unspecified; D68.2 Hereditary deficiency of other clotting factors; Z68.39 Body mass index [BMI] 39.0-39.9, adult; Z86.73 Personal history of transient ischemic attack (TIA), and cerebral infarction without residual deficits; Z95.5 Presence of coronary angioplasty implant and graft; Z90.710 Acquired absence of both cervix and uterus; Z90.49 Acquired absence of other specified parts of digestive tract; Z86.718 Personal history of other venous thrombosis and embolism; Z86.711 Personal history of pulmonary embolism; Z79.01 Long term (current) use of anticoagulants; Z79.899 Other long term (current) drug therapy; Z91.041 Radiographic dye allergy status; Z88.1 Allergy status to other antibiotic agents; Z88.8 Allergy status to other drugs, medicaments and biological substances

== ENCOUNTER 2018-07-24 05:11 | Inpatient (IN) | payer OTHER ==
[2018-07-24] VITALS (8 sets, daily range): BP systolic 132–215; BP diastolic 54–103
[~2018-07-24] VITALS: Ht 170.1 cm; Wt 83.2 kg
--- NOTE | ~2018-07-24 | EKG ---
[place], [place] ELECTROCARDIOGRAM REPORT NAME: CAYLA MCKEON UNIT #: [id number] ROOM: 515 DOCTOR: HUSAM DRAFT REPORT BIRTHDATE: [birth year] [facility] Test Date: 2018-07-24 Test Time: 05:13:11 Pat Name: CAYLA MCKEON Department: Room: [facility] Gender: F Gold Leaf Printer: Elvis Barton : 1940 Requested By: JOSE SAEED Order Number: [id number] Reading MD: Elvis Holt MD Measurements Intervals [place] Rate: 69 P: 7 AL: 209 QRS: 37 QRSD: 99 T: 30 QT: 424 QTc: 455 Interpretive Statements Sinus rhythm Atrial premature complex Abnormal R-wave progression, late transition Baseline wander in lead(s) V3 Electronically Signed On 07-24-2018 6:00:35 PST by Elvis Holt MD CM:EKGRPT:ELECTROCARDIOGRAM REPORT 2 06 JOSE AUGUSTE DRAFT REPORT JOSE SAEED DO
--- NOTE | ~2018-07-24 | EKG ---
[place], [place] ELECTROCARDIOGRAM REPORT NAME: CAYLA MCKEON UNIT #: [id number] ROOM: 515 DOCTOR: HUSAM DRAFT REPORT BIRTHDATE: [address] [facility] Test Date: 2018-07-24 Test Time: 11:16:57 Pat Name: CAYLA MCKEON Department: Room: [facility] Gender: F Lsw: Rosalinda Park : 1940 Requested By: JOSE SAEED Order Number: [id number] Reading MD: Elvis Holt MD Measurements Intervals [place] Rate: 61 P: 51 AK: 217 QRS: 39 QRSD: 99 T: 47 QT: 439 QTc: 443 Interpretive Statements Sinus rhythm Borderline prolonged AK interval Low voltage, precordial leads Compared to ECG 07/24/2018 08:11:42 Atrial premature complex(es) no longer present Electronically Signed On 07-24-2018 12:13:28 PST by Elvis Holt MD CM:EKGRPT:ELECTROCARDIOGRAM REPORT [id number] JOSE AUGUSTE DRAFT REPORT JOSE SAEED DO
--- NOTE | ~2018-07-24 | EKG ---
[place], [place] ELECTROCARDIOGRAM REPORT NAME: CAYLA MCKEON UNIT #: [id number] ROOM: 515 DOCTOR: HUSAM DRAFT REPORT BIRTHDATE: [birth year] [facility] Test Date: 2018-07-24 Test Time: 08:11:42 Pat Name: CAYLA MCKEON Department: Room: [facility] Gender: F Jive Developer: Rosalinda Park : 1940 Requested By: JOSE SAEED Order Number: [id number] Reading MD: Elvis Holt MD Measurements Intervals [place] Rate: 59 P: 46 NE: 218 QRS: 42 QRSD: 103 T: 36 QT: 446 QTc: 442 Interpretive Statements Sinus rhythm Atrial premature complex Borderline prolonged NE interval Low voltage, precordial leads No change from earlier ECG this date Electronically Signed On 07-24-2018 6:04:51 PST by Elvis Holt MD CM:EKGRPT:ELECTROCARDIOGRAM REPORT [id number] JOSE AUGUSTE DRAFT REPORT JOSE SAEED DO
[~2018-07-24 05:11] MED LIST changes: +CIPRO500 MG PO; +PYRIDIUM200 M1 PO
[2018-07-24 05:30] LABS: BASO # 0.1 10*3/uL (0.0-0.1); BASO % 0.7 % (0.0-1.0); EOS # 0.1 10*3/uL (0.0-0.4); EOS % 1.8 % (1.0-4.0); HEMOGLOBIN 14.9 g/dl (12.0-16.0); LYMPH # 1.8 10*3/uL (1.3-4.4); LYMPH % 26.8 % (27.0-41.0); MEAN CELL VOLUME 99.8 fl (81.0-99.0); MEAN CORPUSCULAR HGB CONC 33.1 g/dl (33.0-37.0); MEAN PLATELET VOLUME 11.3 fl (9.6-12.3); MONO # 0.6 10*3/uL (0.1-1.0); MONO % 9.4 % (3.0-9.0); NEUT # 4.2 10*3/uL (2.3-7.9); NEUT % 61.2 % (47.0-73.0); PLATELET COUNT AUTOMATED 179 10*3/uL (130-400); RED BLOOD COUNT 4.51 10*6/uL (4.10-5.10); RED CELL DISTRI WIDTH 13.4 % (0-14.5); WHITE BLOOD COUNT 6.8 10*3/uL (4.8-10.8)
[2018-07-24 05:44] LABS: INTERNATIONAL NORM RATIO 2.4 (2.0-3.5)
[2018-07-24 05:51] LABS: ALBUMIN 3.3 gm/dl (3.1-4.5); BUN 19 mg/dl (7-24); CHLORIDE 108 mmol/L (98-107); CREATININE 1.11 mg/dL (0.55-1.02); POTASSIUM 3.7 mmol/L (3.5-5.1); SGOT/AST 20 IU/L (3-35); SGPT/ALT 31 U/L (12-78); SODIUM 144 mmol/L (136-145); TOTAL PROTEIN 7.3 gm/dL (6.4-8.2)
[2018-07-24 05:54] LABS: ALKALINE PHOSPHATASE 76 U/L (45-117)
[2018-07-24 05:55] LABS: TROPONIN I < 0.015 ng/ml (<0.045)
--- NOTE | 2018-07-24 06:46 | NUR ---
A 78, admitted to , under the services of ABY Noel DO with a diagnosis of HYPERTENSIVE URGENCY, CHEST PAIN. Chief complaint is CHEST PAIN. Patient arrived via ambulance from ER. Monitor applied. Initial assessment completed. Vital signs taken and recorded. ABY NOEL DO notified of admission to the unit. Orders received. See assessment for past medical history, medications and allergies. Patient and/or family oriented to unit. [facility] visitation policy reviewed. Clothing/patient valuable form completed. EDWIN MCKINNEY
--- NOTE | 2018-07-24 12:10 | NUR ---
MESSAGE LEFT WITH DR ANDERSON'S OFFICE FOR NEW CONSULT.
[2018-07-24 13:12] LABS: BILIRUBIN NEGATIVE (NEGATIVE); BLOOD NEGATIVE (NEGATIVE); CLARITY CLEAR (CLEAR); COLOR YELLOW (YELLOW); GLUCOSE NEGATIVE (NEGATIVE); KETONE NEGATIVE (NEGATIVE); LEUKO ESTERASE 1+ (NEGATIVE); NITRITE NEGATIVE (NEGATIVE); SPECIFIC GRAVITY 1.015 (1.005-1.030)
[2018-07-24 13:25] LABS: BACTERIA 1+; RBC 0-2 rbc/hpf (0-2); WBC 21-30 wbc/hpf (0-5)
--- NOTE | 2018-07-24 16:50 | NUR ---
DR ANDERSON NOTIFIED OF HTN AND HE WANTS HER AMILORIDE FREQUENCY READUSTED TO HAVE A DOSE NOW.
--- NOTE | 2018-07-24 17:09 | NUR ---
DR ANDERSON STATES THAT PT IS OK FOR DISCHARGE FROM HIS PERSPECTIVE AND THAT SHE NEEDS TO BE ON THE "WHITE" AMILORIDE. SHE PREVIOUSLY WAS ABLE TO GET THIS FROM [facility] THAT HAS NOW GONE OUT OF BUSINESS. [facility] GIV[facility] HER A "YELLOW" SUBSTITUTE. THE HOSPITAL DOES HAVE HER ORIGINAL "WHITE" PILL.
--- NOTE | 2018-07-24 23:00 | NUR ---
PATIENT SLEEPING IN BED. WOKEN UP TO GIVE MEDICATION. NO COMPLAINTS AT THIS TIME. BED IN LOWEST POSITION, CALL LIGHT WITHIN REACH. WILL CONTINUE TO MONITOR.
[2018-07-25] VITALS: BP 151/63
[2018-07-25 06:33] LABS: BASO % 0.7 % (0.0-1.0); EOS # 0.1 10*3/uL (0.0-0.4); EOS % 2.1 % (1.0-4.0); HEMOGLOBIN 14.5 g/dl (12.0-16.0); LYMPH # 1.8 10*3/uL (1.3-4.4); LYMPH % 30.4 % (27.0-41.0); MEAN CORPUSCULAR HGB 32.2 pg (27.0-31.0); MEAN CORPUSCULAR HGB CONC 32.2 g/dl (33.0-37.0); MEAN PLATELET VOLUME 11.7 fl (9.6-12.3); MONO # 0.6 10*3/uL (0.1-1.0); MONO % 9.9 % (3.0-9.0); NEUT # 3.3 10*3/uL (2.3-7.9); NEUT % 56.6 % (47.0-73.0); PLATELET COUNT AUTOMATED 158 10*3/uL (130-400); RED CELL DISTRI WIDTH 13.2 % (0-14.5); WHITE BLOOD COUNT 5.9 10*3/uL (4.8-10.8)
[2018-07-25 06:55] LABS: INTERNATIONAL NORM RATIO 2.6 (2.0-3.5)
[2018-07-25 06:58] LABS: ALKALINE PHOSPHATASE 73 U/L (45-117); BUN 19 mg/dl (7-24); CHLORIDE 109 mmol/L (98-107); CHOLESTEROL 251 mg/dL (<200); CREATININE 1.02 mg/dL (0.55-1.02); FREE T4 1.09 ng/dl (0.76-1.46); HDL CHOLESTEROL 45 mg/dl (40-60); LDL CHOLESTEROL 177 mg/dL (9-159); PHOSPHOROUS 3.2 mg/dL (2.5-4.9); POTASSIUM 4.1 mmol/L (3.5-5.1); SGOT/AST 25 IU/L (3-35); SGPT/ALT 30 U/L (12-78); SODIUM 144 mmol/L (136-145); TRIGLYCERIDES 146 mg/dl (<150); VLDL CHOLESTEROL 29 mg/dL (6-40)
[2018-07-25 07:19] LABS: VITAMIN D, 25-HYDROXY 64.5 ng/mL (30-100)
--- NOTE | 2018-07-25 07:55 | NUR ---
24 HR chart check completed.
[2018-07-25 08:00] VITALS: BP 160/80
--- NOTE | 2018-07-25 08:30 | NUR ---
Patient resting quietly with no c/o discomfort. Respirations easy and regular. Vital signs stable. No overt distress. IVONNE MORALES
[2018-07-25] MEDS ORDERED: AMILORIDE5 MG PO (10:56)
--- NOTE | 2018-07-25 11:08 | NUR ---
Php Engineer in to talk to patient. Patient states lives at HOME with . There are SEVERAL steps in the home. Physician: CAROL TALAVERA Pharmacy: [facility] [place] Home health services: NONE Patient's level of ADLs: INDEPENDENT Patient has working utilities: YES DME: NONE Follow-up physician's appointment after d/c: WILL BE MADE BY HOSPITALIST NURSE DIRECTOR ON DISCHARGE Does patient want to access PORTAL?: NO Discharge plan PT STATES SHE LIVES AT HOME WITH HER WHO SHE TAKES CARE OF. STATES SHE IS INDEPENDENT IN HER OWN CARE. DENIES ANY NEEDS AT HOME AFTER DISCHARGE. STATES SHE WILL HAVE A RIDE HOME ON DISCHARGE. WILL CONTINUE TO FOLLOW.. NORMAN TOSCANO
[2018-07-25 12:00] VITALS: BP 178/72
--- NOTE | 2018-07-25 13:22 | NUR ---
LEAVING AMBULATORY IN CARE OF DAUGHTER.
[2018-08-12] MEDS ORDERED: LIDEX 0.05% CRE15 GM T (08:17)
[2018-08-12] MEDS ORDERED: MEDROL DOSEPAK4 MG PO (08:17)
[2018-08-13] MEDS ORDERED: Hydralazine Hyd25 MG PO (10:01)
[2018-08-16] MEDS ORDERED: EPLERENONE25 MG PO (13:25)
== END 2018-07-25 13:22 | disposition home or self-care (01) | DRG 305 ==
LOC: ED 05:11 → EDHOLD 06:14 → 5E 06:14
PROVIDERS: Emergency Medicine; Internal Medicine Nephrology; ADMIT Internal Medicine
DX: I16.1 Hypertensive emergency (principal); N39.0 Urinary tract infection, site not specified; E44.1 Mild protein-calorie malnutrition; D68.2 Hereditary deficiency of other clotting factors; D68.9 Coagulation defect, unspecified; E83.41 Hypermagnesemia; R07.9 Chest pain, unspecified; I25.10 Atherosclerotic heart disease of native coronary artery without angina pectoris; N18.3 Chronic kidney disease, stage 3 (moderate); E78.5 Hyperlipidemia, unspecified; E66.9 Obesity, unspecified; F41.1 Generalized anxiety disorder; E04.1 Nontoxic single thyroid nodule; N28.89 Other specified disorders of kidney and ureter; I65.21 Occlusion and stenosis of right carotid artery; I12.9 Hypertensive chronic kidney disease with stage 1 through stage 4 chronic kidney disease, or unspecified chronic kidney disease; Z88.8 Allergy status to other drugs, medicaments and biological substances; Z79.01 Long term (current) use of anticoagulants; Z88.2 Allergy status to sulfonamides; Z91.041 Radiographic dye allergy status; Z86.718 Personal history of other venous thrombosis and embolism; Z86.73 Personal history of transient ischemic attack (TIA), and cerebral infarction without residual deficits; Z87.440 Personal history of urinary (tract) infections; Z90.710 Acquired absence of both cervix and uterus; Z90.49 Acquired absence of other specified parts of digestive tract; Z95.5 Presence of coronary angioplasty implant and graft; Z80.1 Family history of malignant neoplasm of trachea, bronchus and lung; Z83.3 Family history of diabetes mellitus; Z84.89 Family history of other specified conditions; Z81.2 Family history of tobacco abuse and dependence; Z79.899 Other long term (current) drug therapy; Z68.28 Body mass index [BMI] 28.0-28.9, adult

== ENCOUNTER 2018-09-06 21:03 | Emergency (ER) | payer OTHER ==
[~2018-09-06] VITALS: Ht 170.1 cm; Wt 86.2 kg
--- NOTE | ~2018-09-06 | EKG ---
[place], [place] ELECTROCARDIOGRAM REPORT NAME: CAYLA MCKEON UNIT #: [id number] ROOM: DOCTOR: EPIPHANY DRAFT REPORT BIRTHDATE: [birth year] [facility] Test Date: 2018-09-06 Test Time: 21:57:14 Pat Name: CAYLA MCKEON Department: ER Room: Gender: F Motorcycle Mechanic Apprentice: Dede Guillermo : 1940 Requested By: NICHOLAS RODNEY Order Number: [id number] Reading MD: Sunday Rodriguez MD Measurements Intervals [place] Rate: 68 P: 30 CT: 221 QRS: 51 QRSD: 93 T: 48 QT: 458 QTc: 488 Interpretive Statements Sinus rhythm Atrial premature complexes Prolonged CT interval Low voltage, precordial leads Nonspecific T abnormalities, lateral leads Borderline prolonged QT interval Baseline wander in lead(s) II,V5 Compared to ECG 08/14/2018 16:50:18 First degree AV block now present T-wave abnormality now present Electronically Signed On 09-08-2018 13:22:18 PDT by Sunday Rodriguez MD CM:EKGRPT:ELECTROCARDIOGRAM REPORT [id number] NICHOLAS RODNEY MD EPIPHANY DRAFT REPORT NICHOLAS RODNEY MD
[~2018-09-06 21:03] MED LIST changes: +EPLERENONE25 MG PO; +Hydralazine Hyd25 MG PO; +LIDEX 0.05% CRE15 GM T; +MEDROL DOSEPAK4 MG PO
[2018-09-06 22:09] LABS: BASO # 0.1 10*3/uL (0.0-0.1); BASO % 0.7 % (0.0-1.0); EOS # 0.1 10*3/uL (0.0-0.4); EOS % 1.8 % (1.0-4.0); HEMATOCRIT 39.5 % (37.0-47.0); HEMOGLOBIN 13.1 g/dl (12.0-16.0); LYMPH # 2.3 10*3/uL (1.3-4.4); LYMPH % 31.9 % (27.0-41.0); MEAN CELL VOLUME 99.7 fl (81.0-99.0); MEAN CORPUSCULAR HGB 33.1 pg (27.0-31.0); MEAN CORPUSCULAR HGB CONC 33.2 g/dl (33.0-37.0); MEAN PLATELET VOLUME 11.4 fl (9.6-12.3); MONO # 0.7 10*3/uL (0.1-1.0); MONO % 9.1 % (3.0-9.0); NEUT # 4.1 10*3/uL (2.3-7.9); NEUT % 56.4 % (47.0-73.0); PLATELET COUNT AUTOMATED 197 10*3/uL (130-400); RED BLOOD COUNT 3.96 10*6/uL (4.10-5.10); RED CELL DISTRI WIDTH 13.4 % (0-14.5); WHITE BLOOD COUNT 7.2 10*3/uL (4.8-10.8)
[2018-09-06 22:35] LABS: BILIRUBIN NEGATIVE (NEGATIVE); BLOOD NEGATIVE (NEGATIVE); CLARITY CLEAR (CLEAR); COLOR YELLOW (YELLOW); GLUCOSE NEGATIVE (NEGATIVE); KETONE NEGATIVE (NEGATIVE); LEUKO ESTERASE TRACE (NEGATIVE); NITRITE NEGATIVE (NEGATIVE); UROBILINOGEN 0.2 E.U./dl (0.2-1.0)
[2018-09-06 22:35] LABS: ALBUMIN 3.1 gm/dl (3.1-4.5); ALKALINE PHOSPHATASE 72 U/L (45-117); BUN 22 mg/dl (7-24); CHLORIDE 106 mmol/L (98-107); CREATININE 1.21 mg/dL (0.55-1.02); POTASSIUM 3.3 mmol/L (3.5-5.1); SGOT/AST 22 IU/L (3-35); SGPT/ALT 26 U/L (12-78); SODIUM 143 mmol/L (136-145)
[2018-09-06 22:37] LABS: TROPONIN I < 0.015 ng/ml (<0.045)
[2018-09-06 22:41] LABS: ACT PARTIAL THROMBO TIME 34.5 SECONDS (20.8-31.5); INTERNATIONAL NORM RATIO 2.3 (2.0-3.5)
[2018-09-06 22:53] LABS: EPITHELIAL CELLS 15-20; WBC 16-20 wbc/hpf (0-5)
[2018-09-06 23:09] VITALS: BP 168/70
[2018-09-06] MEDS ORDERED: KEFLEX250 MG PO (23:42)
[2018-09-06] MEDS ORDERED: K-TAB20 MEQ PO (23:42)
== END 2018-09-06 23:54 | disposition home or self-care (01) ==
LOC: ED 21:03
PROVIDERS: Emergency Medicine Emergency Medical Services
DX: N39.0 Urinary tract infection, site not specified (principal); F41.9 Anxiety disorder, unspecified; E87.6 Hypokalemia; I12.9 Hypertensive chronic kidney disease with stage 1 through stage 4 chronic kidney disease, or unspecified chronic kidney disease; N18.3 Chronic kidney disease, stage 3 (moderate); I25.10 Atherosclerotic heart disease of native coronary artery without angina pectoris; E78.5 Hyperlipidemia, unspecified; Z86.73 Personal history of transient ischemic attack (TIA), and cerebral infarction without residual deficits; Z86.718 Personal history of other venous thrombosis and embolism; Z86.711 Personal history of pulmonary embolism; Z90.49 Acquired absence of other specified parts of digestive tract; Z90.710 Acquired absence of both cervix and uterus; Z98.890 Other specified postprocedural states; Z79.01 Long term (current) use of anticoagulants; Z79.899 Other long term (current) drug therapy; Z88.2 Allergy status to sulfonamides; Z88.6 Allergy status to analgesic agent; Z88.1 Allergy status to other antibiotic agents; Z88.8 Allergy status to other drugs, medicaments and biological substances

== ENCOUNTER → 2018-09-11 | Outpatient (CLI) | payer OTHER ==
[~2018-09-11] MED LIST changes: +K-TAB20 MEQ PO; +KEFLEX250 MG PO
== END | disposition home or self-care (01) ==
LOC: LAB 08:07
DX: E87.6 Hypokalemia (principal)

== ENCOUNTER → 2018-09-28 | Outpatient (CLI) | payer OTHER ==
[2018-09-28 12:29] LABS: BILIRUBIN NEGATIVE (NEGATIVE); BLOOD NEGATIVE (NEGATIVE); CLARITY SL CLOUDY (CLEAR); COLOR YELLOW (YELLOW); GLUCOSE NEGATIVE (NEGATIVE); KETONE NEGATIVE (NEGATIVE); LEUKO ESTERASE TRACE (NEGATIVE); NITRITE NEGATIVE (NEGATIVE); PH 5.5 (5.0-9.0); SPECIFIC GRAVITY 1.025 (1.005-1.030); UROBILINOGEN 0.2 E.U./dl (0.2-1.0)
[2018-09-28 12:43] LABS: ALBUMIN 3.5 gm/dl (3.1-4.5); BUN 20 mg/dl (7-24); CHLORIDE 107 mmol/L (98-107); CREATININE 0.95 mg/dL (0.55-1.02); PHOSPHOROUS 2.9 mg/dL (2.5-4.9); POTASSIUM 3.6 mmol/L (3.5-5.1); SODIUM 141 mmol/L (136-145)
== END | disposition home or self-care (01) ==
LOC: LAB 11:56
PROVIDERS: Internal Medicine Nephrology
DX: I12.9 Hypertensive chronic kidney disease with stage 1 through stage 4 chronic kidney disease, or unspecified chronic kidney disease (principal); N18.3 Chronic kidney disease, stage 3 (moderate); Z79.899 Other long term (current) drug therapy

== ENCOUNTER 2019-05-09 05:52 | Inpatient (IN) | payer OTHER ==
[2019-05-09] VITALS (12 sets, daily range): BP systolic 156–219; BP diastolic 70–100
[~2019-05-09] VITALS: Ht 170.1 cm; Wt 84.0 kg
[2019-05-09 06:57] LABS: BASO % 0.5 % (0.0-1.0); EOS # 0.1 10*3/uL (0.0-0.4); EOS % 0.8 % (1.0-4.0); HEMATOCRIT 41.5 % (37.0-47.0); HEMOGLOBIN 13.3 g/dl (12.0-16.0); LYMPH # 1.5 10*3/uL (1.3-4.4); LYMPH % 25.1 % (27.0-41.0); MEAN CORPUSCULAR HGB 32.4 pg (27.0-31.0); MEAN PLATELET VOLUME 12.1 fl (9.6-12.3); MONO # 0.7 10*3/uL (0.1-1.0); MONO % 12.1 % (3.0-9.0); NEUT # 3.7 10*3/uL (2.3-7.9); NEUT % 61.3 % (47.0-73.0); PLATELET COUNT AUTOMATED 137 10*3/uL (130-400); RED BLOOD COUNT 4.11 10*6/uL (4.10-5.10); RED CELL DISTRI WIDTH 14.5 % (0-14.5); WHITE BLOOD COUNT 6.1 10*3/uL (4.8-10.8)
[2019-05-09 07:09] LABS: ALKALINE PHOSPHATASE 67 U/L (45-117); BUN 18 mg/dl (7-24); CHLORIDE 110 mmol/L (98-107); CREATININE 1.04 mg/dL (0.55-1.02); POTASSIUM 3.7 mmol/L (3.5-5.1); SGOT/AST 34 IU/L (3-35); SGPT/ALT 33 U/L (12-78); SODIUM 143 mmol/L (136-145); TOTAL PROTEIN 6.8 gm/dL (6.4-8.2)
[2019-05-09 07:11] LABS: TROPONIN I < 0.015 ng/ml (<0.045)
[2019-05-09 07:30] LABS: INTERNATIONAL NORM RATIO 1.8 (2.0-3.5)
--- NOTE | 2019-05-09 09:20 | NUR ---
A 78, admitted to , under the services of PHILL Mercado DO with a diagnosis of HYPERTENSIVE EMERGENCY. Chief complaint is R JAW PAIN,DIZZY AT TIMES. Patient arrived via stretcher from ER. Monitor applied. Initial assessment completed. Vital signs taken and recorded. PHILL MERCADO DO notified of admission to the unit. Orders received. See assessment for past medical history, medications and allergies. Patient and/or family oriented to unit. [facility] visitation policy reviewed. Clothing/patient valuable form completed. CHARO AVILA
[2019-05-09] MEDS ORDERED: AMILORIDE5 MG PO (09:58)
[2019-05-09] MEDS ORDERED: ATENOLOL25 MG PO (10:05)
--- NOTE | 2019-05-09 12:43 | NUR ---
SPEECH PATHOLOGY Clinical swallowing evaluation completed as per orders due to dysphagia. Patient was admitted from home with hypertensive emergency and facial pain. Further history includes DVT, HTN, PE, GI bleed, TIA. Patient was alert and cooperative for assessment and reported right sided facial pain which has been occurring "for a while" which recently worsened. She also reported an incident where she experienced inability to swallow. She reported that she is currently on an antibiotic which she has been taking for a possible infection. She stated that she was concerned about having a possible stroke so she was taken to the ED. A similar episode occurred recently and she presented to [facility], and was then transferred to [facility] for a possible TIA. Patient was seen during lunchtime meal. She consumed solid food and thin liquid. No overt oral or pharyngeal swallowing difficulty was noted. Recommend she remain on regular diet with use of universal safe swallow precautions. As no dysphagia is present, follow up therapy is not warranted. Patient was just admitted today and will be undergoing further testing due to her symptoms. Results and crow. from this assessment were shared with patient and she verbalized understanding. Refer to report in [employer] for further information. Thank you for this referral. GABRIEL PHILIP MSCCC-OFFICE MACHINE EMBOSSOGRAPH OPERATOR
--- NOTE | 2019-05-09 19:13 | NUR ---
MEDICATED WITH TYLENOL PER ORDER NAD REQUEST FOR HEADACHE.
--- NOTE | 2019-05-09 20:29 | NUR ---
TYLENOL EFFECTIVE PER PT
[2019-05-10] VITALS: BP 210/102
--- NOTE | 2019-05-10 01:43 | NUR ---
Patient resting quietly with no c/o or s/s of discomfort. Respirations easy and regular. Vital signs stable. No overt distress. Call light within reach. HISSOM,ESME
--- NOTE | 2019-05-10 05:05 | NUR ---
24 HR chart check completed.
[2019-05-10 06:42] LABS: BASO % 0.5 % (0.0-1.0); EOS # 0.1 10*3/uL (0.0-0.4); EOS % 0.9 % (1.0-4.0); HEMATOCRIT 43.8 % (37.0-47.0); HEMOGLOBIN 13.9 g/dl (12.0-16.0); LYMPH # 1.6 10*3/uL (1.3-4.4); LYMPH % 27.4 % (27.0-41.0); MEAN CELL VOLUME 100.2 fl (81.0-99.0); MEAN CORPUSCULAR HGB 31.8 pg (27.0-31.0); MEAN CORPUSCULAR HGB CONC 31.7 g/dl (33.0-37.0); MONO # 0.6 10*3/uL (0.1-1.0); MONO % 9.5 % (3.0-9.0); NEUT # 3.5 10*3/uL (2.3-7.9); NEUT % 61.4 % (47.0-73.0); PLATELET COUNT AUTOMATED 135 10*3/uL (130-400); RED BLOOD COUNT 4.37 10*6/uL (4.10-5.10); RED CELL DISTRI WIDTH 14.5 % (0-14.5); WHITE BLOOD COUNT 5.8 10*3/uL (4.8-10.8)
[2019-05-10 06:57] LABS: ALBUMIN 3.1 gm/dl (3.1-4.5); BUN 14 mg/dl (7-24); CHLORIDE 111 mmol/L (98-107); CREATININE 0.84 mg/dL (0.55-1.02); POTASSIUM 3.8 mmol/L (3.5-5.1); SGOT/AST 26 IU/L (3-35); SGPT/ALT 30 U/L (12-78); SODIUM 143 mmol/L (136-145); TOTAL PROTEIN 6.8 gm/dL (6.4-8.2)
[2019-05-10 06:58] LABS: ALKALINE PHOSPHATASE 69 U/L (45-117); INTERNATIONAL NORM RATIO 2.1 (2.0-3.5)
[2019-05-10 08:00] VITALS: BP 210/83
--- NOTE | 2019-05-10 08:46 | NUR ---
NOTIFIED DR. MUELLER OF PT'S BP. NO NEW ORDERS GIVN AT THIS TIME.
--- NOTE | 2019-05-10 09:00 | NUR ---
Planning Coordinator in to talk to patient. Patient states lives at home with . There are few steps in the home. Physician: cruz bernabe Pharmacy: [facility] Home health services: none Patient's level of ADLs: INDEPENDENT Patient has working utilities: all working DME: stair lift Follow-up physician's appointment after d/c: will be made by hospitalist nurse director upon discharge Does patient want to access PORTAL?: no Discharge plan discussed with patient, she states she lives at home with her , she is independent in adls and ambulation, has a stair lift in her home, she states she will return [place] when medically stable and denies any home needs, patient will remain in the hospital with blood pressure being monitored, case management will follow for any needs. ALEX FOSTER
--- NOTE | 2019-05-10 09:14 | NUR ---
DR. ANDERSON'S OFFICE NOTIFIED OF CONSULT.
--- NOTE | 2019-05-10 10:05 | NUR ---
ATIVAN GIVEN FOR C/O ANXIETY. WILL MONITOR.
--- NOTE | 2019-05-10 11:15 | NUR ---
ATIVAN EFFECTIVE PER PT.
[2019-05-10 12:00] VITALS: BP 183/62
[2019-05-10 12:35] LABS: BILIRUBIN NEGATIVE (NEGATIVE); BLOOD NEGATIVE (NEGATIVE); CLARITY CLEAR (CLEAR); COLOR YELLOW (YELLOW); GLUCOSE NEGATIVE (NEGATIVE); KETONE NEGATIVE (NEGATIVE); LEUKO ESTERASE NEGATIVE (NEGATIVE); NITRITE NEGATIVE (NEGATIVE); SPECIFIC GRAVITY 1.015 (1.005-1.030); UROBILINOGEN 0.2 E.U./dl (0.2-1.0)
[2019-05-10 12:52] LABS: BACTERIA 2+
[2019-05-10 16:00] VITALS: BP 197/66
[2019-05-10 20:00] VITALS: BP 170/74; BP 187/60
--- NOTE | 2019-05-10 20:00 | NUR ---
FAMILY AT BEDSIDE. UPDATED ON PLAN OF CARE PER PTS REQUEST. QUESTIONS ANSWERED
--- NOTE | 2019-05-10 23:05 | NUR ---
PT C/O NON PROD COUGH. REQUESTING COUGH MEDICINE. NOTIFIED DR LIM. STATED SHE WOULD ORDER SOMETHING
[2019-05-11] VITALS: BP 170/40; BP 194/77
--- NOTE | 2019-05-11 00:35 | NUR ---
24 HR chart check completed.
--- NOTE | 2019-05-11 01:31 | NUR ---
SPOKE WITH DR LIM REGARDING PATIENTS BP OF 170/40. NO NEW ORDERS AT THIS TIME. PT IS ASYMPTOMATIC. RESTING IN BED. CALL LIGHT WITHIN REACH
--- NOTE | 2019-05-11 02:08 | NUR ---
Patient resting quietly with no c/o or s/s of discomfort. Respirations easy and regular. Vital signs stable. No overt distress. Call light within reach HISSOM,ESME
[2019-05-11 06:18] LABS: BUN 15 mg/dl (7-24); CHLORIDE 108 mmol/L (98-107); CREATININE 0.86 mg/dL (0.55-1.02); POTASSIUM 3.6 mmol/L (3.5-5.1); SODIUM 140 mmol/L (136-145)
[2019-05-11 06:35] LABS: BASO % 0.6 % (0.0-1.0); EOS # 0.1 10*3/uL (0.0-0.4); EOS % 1.2 % (1.0-4.0); HEMATOCRIT 41.2 % (37.0-47.0); HEMOGLOBIN 13.3 g/dl (12.0-16.0); LYMPH # 1.4 10*3/uL (1.3-4.4); LYMPH % 26.1 % (27.0-41.0); MEAN CELL VOLUME 100.5 fl (81.0-99.0); MEAN CORPUSCULAR HGB 32.4 pg (27.0-31.0); MEAN CORPUSCULAR HGB CONC 32.3 g/dl (33.0-37.0); MONO # 0.6 10*3/uL (0.1-1.0); MONO % 11.8 % (3.0-9.0); NEUT # 3.1 10*3/uL (2.3-7.9); NEUT % 60.1 % (47.0-73.0); PLATELET COUNT AUTOMATED 124 10*3/uL (130-400); RED CELL DISTRI WIDTH 14.4 % (0-14.5); WHITE BLOOD COUNT 5.2 10*3/uL (4.8-10.8)
[2019-05-11 12:00] VITALS: BP 184/67
[2019-05-11 16:00] VITALS: BP 158/65
--- NOTE | 2019-05-11 17:47 | NUR ---
MSDIS Discharge instructions reviewed with patient/family. Patient receptive and verbalizes understanding. Follow-up care arranged. Written instructions given to patient/family. ZI HAWLEY
[2019-05-16 16:07] LABS: VMA, URINE 24 HR 3.5 mg/24 hr (0.0-7.5)
== END 2019-05-11 18:50 | disposition home or self-care (01) | DRG 305 ==
LOC: ED 05:52 → EDHOLD 08:52 → 4E 08:52
PROVIDERS: Emergency Medicine; Internal Medicine; Registered Nurse; ADMIT Internal Medicine
DX: I16.1 Hypertensive emergency (principal); E44.0 Moderate protein-calorie malnutrition; D68.9 Coagulation defect, unspecified; D68.2 Hereditary deficiency of other clotting factors; E78.2 Mixed hyperlipidemia; N18.3 Chronic kidney disease, stage 3 (moderate); R68.84 Jaw pain; I25.10 Atherosclerotic heart disease of native coronary artery without angina pectoris; R13.10 Dysphagia, unspecified; R82.71 Bacteriuria; D75.89 Other specified diseases of blood and blood-forming organs; F41.1 Generalized anxiety disorder; I65.29 Occlusion and stenosis of unspecified carotid artery; I12.9 Hypertensive chronic kidney disease with stage 1 through stage 4 chronic kidney disease, or unspecified chronic kidney disease; R00.1 Bradycardia, unspecified; E87.8 Other disorders of electrolyte and fluid balance, not elsewhere classified; R73.9 Hyperglycemia, unspecified; I70.1 Atherosclerosis of renal artery; Z86.718 Personal history of other venous thrombosis and embolism; Z86.711 Personal history of pulmonary embolism; Z88.8 Allergy status to other drugs, medicaments and biological substances; Z86.73 Personal history of transient ischemic attack (TIA), and cerebral infarction without residual deficits; Z88.2 Allergy status to sulfonamides; Z91.041 Radiographic dye allergy status; Z95.5 Presence of coronary angioplasty implant and graft; Z90.49 Acquired absence of other specified parts of digestive tract; Z90.710 Acquired absence of both cervix and uterus; Z83.2 Family history of diseases of the blood and blood-forming organs and certain disorders involving the immune mechanism; Z80.1 Family history of malignant neoplasm of trachea, bronchus and lung; Z80.8 Family history of malignant neoplasm of other organs or systems; Z83.3 Family history of diabetes mellitus; Z82.49 Family history of ischemic heart disease and other diseases of the circulatory system; Z79.899 Other long term (current) drug therapy; Z68.29 Body mass index [BMI] 29.0-29.9, adult

== ENCOUNTER 2019-08-06 17:42 | Emergency (ER) | payer OTHER ==
[~2019-08-06] VITALS: Ht 170.1 cm; Wt 84.8 kg
[~2019-08-06 17:42] MED LIST changes: +ATENOLOL25 MG PO
[2019-08-06 18:37] LABS: BASO # 0.1 10*3/uL (0.0-0.1); BASO % 0.8 % (0.0-1.0); EOS # 0.2 10*3/uL (0.0-0.4); EOS % 1.7 % (1.0-4.0); HEMOGLOBIN 12.7 g/dl (12.0-16.0); LYMPH # 1.4 10*3/uL (1.3-4.4); LYMPH % 14.2 % (27.0-41.0); MEAN CORPUSCULAR HGB 32.2 pg (27.0-31.0); MEAN CORPUSCULAR HGB CONC 32.6 g/dl (33.0-37.0); MEAN PLATELET VOLUME 11.1 fl (9.6-12.3); MONO # 0.9 10*3/uL (0.1-1.0); MONO % 9.4 % (3.0-9.0); NEUT # 7.2 10*3/uL (2.3-7.9); NEUT % 73.6 % (47.0-73.0); PLATELET COUNT AUTOMATED 234 10*3/uL (130-400); RED BLOOD COUNT 3.94 10*6/uL (4.10-5.10); RED CELL DISTRI WIDTH 13.8 % (0-14.5); WHITE BLOOD COUNT 9.8 10*3/uL (4.8-10.8)
[2019-08-06 18:48] LABS: ACT PARTIAL THROMBO TIME 37.5 SECONDS (20.0-32.1); INTERNATIONAL NORM RATIO 3.1 (2.0-3.5)
[2019-08-06 18:52] LABS: ALBUMIN 3.2 gm/dl (3.1-4.5); ALKALINE PHOSPHATASE 131 U/L (45-117); BUN 15 mg/dl (7-24); CHLORIDE 105 mmol/L (98-107); CREATININE 0.99 mg/dL (0.55-1.02); LIPASE 56 U/L (73-393); POTASSIUM 3.1 mmol/L (3.5-5.1); SGOT/AST 41 IU/L (3-35); SGPT/ALT 48 U/L (12-78); SODIUM 141 mmol/L (136-145); TOTAL PROTEIN 7.5 gm/dL (6.4-8.2)
[2019-08-06 20:14] LABS: COLOR YELLOW (YELLOW)
[2019-08-06 20:15] LABS: BILIRUBIN NEGATIVE (NEGATIVE); BLOOD NEGATIVE (NEGATIVE); CLARITY CLEAR (CLEAR); GLUCOSE NEGATIVE (NEGATIVE); KETONE NEGATIVE (NEGATIVE); LEUKO ESTERASE TRACE (NEGATIVE); NITRITE NEGATIVE (NEGATIVE); UROBILINOGEN 0.2 E.U./dl (0.2-1.0)
[2019-08-06 20:16] LABS: BACTERIA TRACE; EPITHELIAL CELLS 21-30
[2019-08-06 22:40] VITALS: BP 156/64
== END 2019-08-07 00:34 | disposition short-term general hospital (02) ==
LOC: ED 17:42
PROVIDERS: Physician Assistant
DX: R18.8 Other ascites (principal); K86.89 Other specified diseases of pancreas; I10 Essential (primary) hypertension; Z90.49 Acquired absence of other specified parts of digestive tract; Z90.710 Acquired absence of both cervix and uterus; Z88.2 Allergy status to sulfonamides; Z88.8 Allergy status to other drugs, medicaments and biological substances; Z79.899 Other long term (current) drug therapy

== ENCOUNTER 2019-08-15 12:45 | Emergency (ER) | payer OTHER ==
[~2019-08-15] VITALS: Ht 170.1 cm; Wt 84.4 kg
[2019-08-15 15:15] LABS: BASO % 0.2 % (0.0-1.0); EOS # 0.1 10*3/uL (0.0-0.4); EOS % 0.8 % (1.0-4.0); HEMATOCRIT 37.4 % (37.0-47.0); LYMPH # 1.1 10*3/uL (1.3-4.4); LYMPH % 11.5 % (27.0-41.0); MEAN CELL VOLUME 100.3 fl (81.0-99.0); MEAN CORPUSCULAR HGB 32.2 pg (27.0-31.0); MEAN CORPUSCULAR HGB CONC 32.1 g/dl (33.0-37.0); MEAN PLATELET VOLUME 11.7 fl (9.6-12.3); MONO # 1.1 10*3/uL (0.1-1.0); MONO % 11.4 % (3.0-9.0); NEUT # 7.5 10*3/uL (2.3-7.9); NEUT % 75.8 % (47.0-73.0); PLATELET COUNT AUTOMATED 210 10*3/uL (130-400); RED BLOOD COUNT 3.73 10*6/uL (4.10-5.10); RED CELL DISTRI WIDTH 14.6 % (0-14.5); WHITE BLOOD COUNT 9.9 10*3/uL (4.8-10.8)
[2019-08-15 15:29] LABS: ACT PARTIAL THROMBO TIME 47.1 SECONDS (20.0-32.1); ALBUMIN 2.6 gm/dl (3.1-4.5); CREATININE 1.08 mg/dL (0.55-1.02); INTERNATIONAL NORM RATIO 4.4 (2.0-3.5); POTASSIUM 3.3 mmol/L (3.5-5.1); TOTAL PROTEIN 6.6 gm/dL (6.4-8.2)
[2019-08-15 20:46] VITALS: BP 142/64
== END 2019-08-15 23:18 | disposition short-term general hospital (02) ==
LOC: ED 12:45
PROVIDERS: Nurse Practitioner Family
DX: K86.89 Other specified diseases of pancreas (principal); R18.8 Other ascites; J90 Pleural effusion, not elsewhere classified; I12.9 Hypertensive chronic kidney disease with stage 1 through stage 4 chronic kidney disease, or unspecified chronic kidney disease; N18.9 Chronic kidney disease, unspecified; E78.5 Hyperlipidemia, unspecified; Z88.2 Allergy status to sulfonamides; Z88.8 Allergy status to other drugs, medicaments and biological substances; Z79.899 Other long term (current) drug therapy; Z79.01 Long term (current) use of anticoagulants; Z90.710 Acquired absence of both cervix and uterus; Z86.718 Personal history of other venous thrombosis and embolism; Z90.49 Acquired absence of other specified parts of digestive tract